=== PATIENT | female | born 1975 | race Caucasian/White ===

== ENCOUNTER → 2017-01-30 | Outpatient (CLI) | payer OTHER | END | disposition home or self-care (01) | LOC: US 09:00 | PROC: BW40ZZZ Ultrasonography of Abdomen (ICD-10-PCS; principal; 2017-01-30) | DX: R10.9 Unspecified abdominal pain (principal) | CPT/HCPCS: Q0092 ==

== ENCOUNTER → 2017-02-13 | Outpatient (CLI) | payer OTHER | END | disposition home or self-care (01) | LOC: MA 02-12 09:00 | PROC: BH02ZZZ Plain Radiography of Bilateral Breasts (ICD-10-PCS; principal; 2017-02-13) | DX: Z00.00 Encounter for general adult medical examination without abnormal findings (principal); Z98.82 Breast implant status | CPT/HCPCS: G0204 ==